=== PATIENT | male | born 1975 | race Caucasian/White ===

== ENCOUNTER 2018-05-03 12:47 | Emergency (ER) | payer BC ==
[~2018-05-03 12:47] MED LIST: Iopamidol 370 76% 100 ML VIAL ONE
--- NOTE | 2018-05-03 15:20 | CT ---
ABDOMEN AND PELVIC CT SCAN WITH IV CONTRAST: 05/03/18 HISTORY: 42-year-old male with history of abdominal pain for three days, not relenting. The visualized lung bases are clear. One very tiny less than 0.5 cm low attenuation focus in the dome of the right lobe of the liver too small to characterize but statistically a tiny cyst. The gallbla dder, pancreas, spleen, and adrenal glands are unremarkable. No renal calculus or acute obstructio n. There is some prominent fat stranding and some colonic wall thickening at the level of the left co michele/sigmoid colon junction. There appears to be a small focal confined mostly air collection adjacent to the colon measuring 1 x 1.3 x 1.7 cm probably a confined leak. There is surrounding fat stranding extending down into the left lateral pelvis. I feel this is most likely related to acute diverticuli tis. There are a few scattered diverticula in the sigmoid colon. There is a normal appearing appendix . No evidence for free intraperitoneal air. IMPRESSION: Evidence for acute colon diverticulitis at the left colon/sigmoid colon junction region with a small mostly air collection consistent with a confined leak without evidence for free intraperitoneal air o r drainable abscess. No evidence for other significant acute process. No renal calculus or obstruc tion. Normal appearing appendix. POS: [facility]
== END 2018-05-03 15:32 | disposition home or self-care (01) ==
LOC: SCSER 12:47
DX: K57.92 Diverticulitis of intestine, part unspecified, without perforation or abscess without bleeding (principal); K57.32 Diverticulitis of large intestine without perforation or abscess without bleeding
CPT/HCPCS: 74177; 85025

== ENCOUNTER 2020-03-12 08:21 | Outpatient (CLI) | payer BC | END 2020-03-12 08:22 | disposition home or self-care (01) | LOC: CTENTCT 08:21 | PROVIDERS: ATTEND Specialist | DX: J32.9 Chronic sinusitis, unspecified (principal); J33.9 Nasal polyp, unspecified | CPT/HCPCS: 70486 ==

== ENCOUNTER 2021-07-04 15:51 | Outpatient (CLI) | payer BC ==
[2021-07-05 03:01] LABS: SARS-CoV-2 PCR by NAA Not Detected (NotDetected)
== END 2021-07-04 15:52 | disposition home or self-care (01) ==
LOC: LABBT 15:51
PROVIDERS: ATTEND Specialist
DX: Z01.818 Encounter for other preprocedural examination (principal); Z20.822 Contact with and (suspected) exposure to COVID-19
CPT/HCPCS: 93005; 93010; U0003; U0005